=== PATIENT | female | born 1975 | race Caucasian/White ===

== ENCOUNTER 2017-02-02 07:34 | Emergency (ER) | payer BC ==
[~2017-02-02] VITALS: Ht 167.6 cm; Wt 90.0 kg
[2017-02-02] MEDS ORDERED: ONDANSETRON HCL 4MG/2ML VIAL IV STA (07:48)
[2017-02-02] MEDS ORDERED: SODIUM CHLORIDE 0.9% 1,000 ML IV ONE (07:48)
[2017-02-02 09:47] LABS: CLARITY URINE CLOUDY (CLEAR); COLOR URINE YELLOW (YELLOW); GLUCOSE URINE NEGATIVE (NEGATIVE); KETONES URINE TRACE (NEGATIVE); LEUKOCYTE ESTERASE URINE NEGATIVE (NEGATIVE); NITRITE URINE NEGATIVE (NEGATIVE); OCCULT BLOOD URINE NEGATIVE (NEGATIVE); PROTEIN URINE NEGATIVE (NEGATIVE); SPECIFIC GRAVITY URINE 1.027 (1.005-1.030); UROBILINOGEN URINE 0.2 E.U./dL (0.2-1.0)
[2017-02-02 09:53] LABS: BASOPHILS % 0.1 % (0.0-2.0); EOSINOPHILS % 0.2 % (0.0-5.0); HEMATOCRIT. 37.3 % (36.0-48.0); HEMOGLOBIN. 13.2 g/dL (12.0-16.0); LYMPHOCYTES % 8.4 % (20.0-50.0); MEAN CORPUSCULAR HEMOGLOBIN 32.4 pg (28.0-32.0); MEAN CORPUSCULAR VOLUME 91.3 fL (81.0-99.0); MONOCYTES % 3.1 % (2.0-8.0); NEUTROPHILS % 88.2 % (40.0-76.0); PLATELET 284 x1000/uL (130-400); RED BLOOD CELL COUNT 4.09 mill/uL (4.2-5.4); RED CELL DISTRIBUTION WIDTH 13.1 % (11.6-14.6)
[2017-02-02 10:00] LABS: CHLORIDE 109 mEq/L (98-107)
[2017-02-02 10:09] LABS: CARBON DIOXIDE 21 mEq/L (21-32); ETHANOL BLOOD < 10 mg/dL
[2017-02-02 10:09] LABS: *AMPHETAMINES SCREEN URINE NEGATIVE (NEGATIVE); *BARBITURATES SCREEN URINE NEGATIVE (NEGATIVE); *BENZODIAZEPINES SCREEN URINE NEGATIVE (NEGATIVE); *COCAINE SCREEN URINE NEGATIVE (NEGATIVE); CANNABINOID URINE SCREEN NEGATIVE (NEGATIVE); METHADONE URINE SCREEN NEGATIVE (NEGATIVE); OPIATES URINE SCREEN NEGATIVE (NEGATIVE); PHENCYCLIDINE URINE SCREEN NEGATIVE (NEGATIVE)
[2017-02-02 11:27] VITALS: BP 114/54
== END 2017-02-02 12:28 | disposition home or self-care (01) ==
LOC: ER 07:44
DX: O26.892 Other specified pregnancy related conditions, second trimester (principal); O21.9 Vomiting of pregnancy, unspecified; O99.282 Endocrine, nutritional and metabolic diseases complicating pregnancy, second trimester; E03.9 Hypothyroidism, unspecified; R56.9 Unspecified convulsions; R51 Headache; Z3A.15 15 weeks gestation of pregnancy
CPT/HCPCS: 36415; 70551; 76805; 80053; 80305; 81001; 85025; 96361; 96374; 99285; G0482; J2405; J7030; Z7610